=== PATIENT | female | born 2000 | race Caucasian/White ===

== ENCOUNTER 2022-03-09 19:46 | Emergency (ER) | payer OTHER ==
[2022-03-09 20:13] VITALS: BP 111/58; RESP 20; TEMP 99.5
[2022-03-09] MEDS ORDERED: AMOXIC-POT CLAV 875-125MG 1 EACH TAB PO STA (20:50)
--- NOTE | 2022-03-09 20:54 | ED ---
General Adult HPI - General Chief complaint: Dental/Oral Stated complaint: Tooth Infection, fever Time Seen by Provider: 03/09/22 20:43 Source: patient, RN notes reviewed Mode of arrival: ambulatory Limitations: no limitations - History of Present Illness Initial comments: This is a pleasant 21-year-old female presents the MRSA back complaining of pain to her left upper dental area which is bothering her for a few days. She states she has a dental carry in this area which has been problematic. Patient is a nonsmoker but does vape. Patient denying any other significant past medical history. No immunosuppression. Patient also complaining of a pilonidal cyst which she has had for quite some time. Patient states that she recently had drainage from the area just wants it checked. He denies any significant pain in this area. No headache, no fever or chills, no changes in vision or hearing, no sore throat or difficulty with speech, no neck pain, no chest pain or shortness of breath, no abdominal pain, no nausea or vomiting, no changes in urination or bowel movements, no numbness or tingling, no extremity pain, no skin rashes or lesions. Past medical, surgical, social, and family history reviewed. - Related Data Previous Rx's Medication Instructions Recorded Acetaminophen Tab [Tylenol Tab] 500 mg PO Q6H PRN #24 tablet 03/09/22 Amoxic-Pot Clav 875-125Mg 1 tab PO Q12HR 1 Days #20 tab 03/09/22 [Augmentin 875-125] Ibuprofen [Motrin Ib] 400 mg PO Q8H PRN #50 tab 03/09/22 Allergies Allergy/AdvReac Type Severity Reaction Status Date / Time No Known Allergies Allergy Verified 03/09/22 20:13 Review of Systems ROS Statement: Those systems with pertinent positive or pertinent negative responses have been documented in the HPI. ROS Other: All systems not noted in ROS Statement are negative. Past Medical History Additional Past Medical History / Comment(s): cyst, tooth issues History of Any Multi-Drug Resistant Organisms: None Reported Past Surgical History: Orthopedic Surgery Past Psychological History: No Psychological Hx Reported Smoking Status: Vaper Past Alcohol Use History: Occasional Past Drug Use History: Marijuana General Exam - General Exam Comments Initial Comments: Patient heart rate registered at 119 in triage. However, I'm getting a reading of 84 by auscultation and radial pulse. Patient in no distress. Does not appear to be ill or toxic. Adequate perfusion. No fever. No mottling. Stable vital signs. Limitations: no limitations General appearance: alert, in no apparent distress Head exam: Present: atraumatic, normocephalic, normal inspection Eye exam: Present: normal appearance, PERRL, EOMI. Absent: scleral icterus, conjunctival injection, periorbital swelling ENT exam: Present: normal exam, normal oropharynx, mucous membranes moist, normal external ear exam, other (Patient has an eroded dental carry to left upper molar, tooth #15. Some adjacent edema without abscess. Airway is patent). Absent: mucous membranes dry Expanded Mouth exam: Present: tongue normal. Absent: drooling, trismus, muffled voice, tongue elevation Teeth exam: Present: dental caries, dental tenderness # (#15), gingival enlargement (Adjacent to #15). Absent: fractured tooth # Throat exam: negative: tonsillar erythema, tonsillomegaly, R peritonsillar mass, L peritonsillar mass Neck exam: Present: normal inspection, full ROM. Absent: tenderness, meningismus, lymphadenopathy Respiratory exam: Present: normal lung sounds bilaterally. Absent: respiratory distress, wheezes, rales, rhonchi, stridor Cardiovascular Exam: Present: regular rate (Patient's heart rate is 84 by auscultation and by radial pulse.), normal rhythm, normal heart sounds. Absent: systolic murmur, diastolic murmur, rubs, gallop, clicks GI/Abdominal exam: Present: soft, normal bowel sounds. Absent: distended, tenderness, guarding, rebound, rigid Extremities exam: Present: normal inspection, full ROM, normal capillary refill. Absent: tenderness, pedal edema, joint swelling, calf tenderness Back exam: Present: normal inspection Neurological exam: Present: alert, oriented X3, CN II-XII intact Psychiatric exam: Present: normal affect, normal mood Skin exam: Present: warm, dry, intact, normal color, other (Small pilonidal cyst without evidence of inflammation or abscess. No surrounding cellulitis. No significant tenderness. Approximately 1 cm in diameter). Absent: rash Course Vital Signs 03/09/22 20:09 Temperature 99.5 F Pulse Rate 119 H Respiratory 20 Rate Blood Pressure 111/58 O2 Sat by Pulse 97 Oximetry Medical Decision Making - Medical Decision Making counseled smoking cessation. Counseled on the need to follow-up with the surgeon for the pilonidal cyst. We'll treat with antibiotics for the suspected dental infection. Patient's vital signs are stable, patient afebrile. Patient not tachycardic in the room. 84/m. Patient was told to return to the ER for any signs or symptoms worsen. Told to return immediately if any other problems arise. All questions answered. Treatment plan discussed. Patient in agreement Every effort has been made to ensure accuracy of this dictation. However, due to the limitations of electronic medical records and dictation devices, errors in charting still occur. [employer]. Posadas Disposition Clinical Impression: Infected dental caries, Pilonidal cyst Disposition: HOME SELF-CARE Instructions (If sedation given, give patient instructions): Dental Abscess (ED), Pilonidal Cyst (ED), Toothache (ED) Additional Instructions: Follow-up with your regular physician as directed. Return to the ER immediately if any symptoms worsen, new symptoms arise, or any other problems develop. Take the antibiotics as directed. Follow-up with a dentist as soon as possible. Work on stopping vaping. Take [id number] acetaminophen and/or ibuprofen for pain control. Prescriptions: Amoxic-Pot Clav 875-125Mg [Augmentin 875-125] 1 tab PO Q12HR 1 Days #20 tab Ibuprofen [Motrin Ib] 400 mg PO Q8H PRN #50 tab PRN Reason: Pain Acetaminophen Tab [Tylenol Tab] 500 mg PO Q6H PRN #24 tablet PRN Reason: Pain Is patient prescribed a controlled substance at d/c from ED?: No Referrals: Bishnu Elliott DO [Doctor of Osteopathic Medicine] - 03/13/22 Time of Disposition: 20:54
[2022-03-09 21:53] VITALS: PULSE 107
== END 2022-03-09 21:53 | disposition home or self-care (01) ==
LOC: EC 19:46
DX: K02.9 Dental caries, unspecified (principal); L05.91 Pilonidal cyst without abscess; F17.209 Nicotine dependence, unspecified, with unspecified nicotine-induced disorders
CPT/HCPCS: 99283